=== PATIENT | female | born 1995 | race Caucasian/White ===

== ENCOUNTER 2017-12-31 19:08 | Emergency (ER) | payer BC ==
[~2017-12-31] VITALS: Ht 167.6 cm; Wt 77.4 kg
[2017-12-31 19:12] VITALS: TEMP 36.4; Ht 167.6 cm; Wt 77.4 kg
[2017-12-31] MEDS ORDERED: TRIMETHOPRIM/POLYMYXIN B OPR STA (19:34)
--- NOTE | 2017-12-31 19:40 | EMERGENCY ROOM VISIT NOTE ---
ED Visit Note First contact with patient: 19:17 CHIEF COMPLAINT: Right eye irritation HISTORY OF PRESENT ILLNESS: This 22-year-old female presents to ER with chief complaint of right eye irritation. The patient states at 4:30 PM she picked up a tissue that was in her pocket and felt something in her right eye. The patient states since that time her right eye just feels irritated. She denies any eye pain, visual changes. She admits to clear drainage from the right eye. The patient does not wear contacts. REVIEW OF SYSTEMS: 6 system review was performed and was negative unless stated otherwise in history of present illness. PMH: The patient is healthy; asthma, HSV-1, depression/anxiety SOCIAL HISTORY: Patient lives alone. The patient denies any tobacco use but admits to occasional alcohol use. PHYSICAL EXAM: Vital Signs: Were reviewed reviewed Nurse's notes. GENERAL: A 1- year-old female appears in no acute distress. MENTAL Status: Alert and oriented 3. EYES: The pupils are round, equal, and react to light. EOMs are full. There is discharge of clear tears from the right eye which is injected. There is no foreign body visible under athe eyelid even after lid eversion. Slit lamp exam revealed no foreign body was seen embedded in the cornea. The cornea was clear and no hyphema was seen. Fluorescein uptake was observed with not observed with ultraviolet light. EMERGENCY DEPARTMENT COURSE: The fluorescein was irrigated away and atrium eyedrop was placed into the right eye. The patient was discharged to home in stable condition. DIAGNOSIS: Conjunctivitis right eye DISCHARGE INSTRUCTIONS AND TREATMENT: Avoid rubbing her eye as much as possible. Polytrim eyedrops 1 drop to the right eye every 3 hours while awake for 5 days. If symptoms persist or worsen, follow-up with ophthalmology for further evaluation. Vital Signs Date Time Temp Pulse Resp B/P (MAP) Pulse Ox O2 Delivery O2 Flow Rate FiO2 12/31/17 19:12 36.4 79 18 117/77 96 Room Air Departure Information Referrals No Doctor, Assigned (PCP) Patient Instructions My [facility]
[2017-12-31 19:49] VITALS: BP 125/75; PULSE 86; O2SAT 98
== END 2017-12-31 19:51 | disposition home or self-care (01) ==
LOC: EDBD 19:10 → C.EDB 19:10 → C.EDD 19:51
DX: H10.9 Unspecified conjunctivitis (principal); J45.909 Unspecified asthma, uncomplicated